=== PATIENT | female | born 1995 | race Caucasian/White ===

== ENCOUNTER 2018-09-05 23:40 | Emergency (ER) | payer OTHER ==
[2018-09-06] MEDS ORDERED: SODIUM CHLORIDE 1,000 ML IV STA (00:49)
[2018-09-06] MEDS ORDERED: METOCLOPRAMIDE HCL INJECTION 10 MG/2 ML VIAL IVPB ONE (00:49)
--- NOTE | 2018-09-06 00:49 | PDOC ---
History of Present Illness - General Chief Complaint: Migraine Headache Stated Complaint: PAIN Time Seen by Provider: 09/06/18 00:19 History Source: Patient - History of Present Illness Initial Comments: 09/06/18 01:02 23-year-old female with headache and left-sided facial pain for 2 days. Patient reports that she has a history of migraine. patient denies nausea, vomiting, dizziness, weakness. Patient reports she takes Tylenol but it hasn't been helping with the headache. Patient is also complaining of 2 week history of intermittent bilateral breast pain. denies redness, swelling, lump. 09/06/18 01:04 Past History - Past Medical History Allergies/Adverse Reactions: Allergies Allergy/AdvReac Type Severity Reaction Status Date / Time No Known Allergies Allergy Verified 09/06/18 01:14 Home Medications: Ambulatory Orders Acetaminophen [Tylenol .Regular Strength -] 650 mg PO Q3H PRN #0 tablet Benzocaine [Americaine 20% [place] -] 1 spray TP PRN PRN #0 bottle 02/20/16 Ferrous Sulfate [Feosol] 325 mg PO BID #60 ud 02/20/16 Ibuprofen [Motrin -] 200 mg PO Q4H PRN #0 tablet 02/20/16 Sennosides/Docusate Sodium [Pericolace -] 2 tablet PO HS PRN #60 tablet Witch [place]ida 50% (Tucks) [Tucks Pads -] 1 pad TP PRN PRN #0 pad 02/20/16 Docusate Sodium [Colace -] 100 mg PO BID #30 capsule 03/10/16 Asthma: No Cancer: No Cardiac Disorders: No Diabetes: No HTN: No Seizures: No Thyroid Disease: No - Immunization History Immunization Up to Date: Yes - Suicide/Smoking/Psychosocial Hx Smoking History: Never smoked Have you smoked in the past 12 months: No Hx Alcohol Use: No Drug/Substance Use Hx: No Substance Use Type: None Hx Substance Use Treatment: No Review of Systems - Review of Systems Able to Perform ROS?: Yes Is the patient limited Estonian proficient: No HEENTM: Yes: Other (breast pain) ABD/GI: No: Symptoms Reported, See HPI, Abdominal Distended, Abd. Pain w/ defecation, Blood Streaked Bowels, Constipated, Diarrhea, Difficulty Swallowing , Nausea, Poor Appetite, Poor Fluid Intake, Rectal Bleeding, Vomiting, Indigestion, Abdominal cramping, Tarry Stools, Other Neurological: Yes: Headache *Physical Exam - Vital Signs 09/06/18 04:37 Last Vital Signs Temp Pulse Resp BP Pulse Ox 98 F 70 18 126/76 99 09/05/18 23:40 09/05/18 23:40 09/05/18 23:40 09/05/18 23:40 09/05/18 23:40 - Physical Exam General Appearance: Yes: Appropriately Dressed HEENT: positive: Other (bilateral breast normal-appearing. No dimpling, drainage , lump noted. No nipple inversion. ) Respiratory/Chest: positive: Lungs Clear, Normal Breath Sounds Cardiovascular: positive: Regular Rhythm, Regular Rate Gastrointestinal/Abdominal: positive: Normal Bowel Sounds, Soft. 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-XII NML intact, Fully Oriented, Alert, Normal Mood/ Affect ED Treatment Course - LABORATORY CBC & Chemistry Diagram: 09/06/18 02:50 09/06/18 02:50 Progress Note - Progress Note Progress Note: migraine; breast pain P: IVF cbc cmp serum negative reglan benadryl toradol *DC/Admit/Observation/Transfer Diagnosis at time of Disposition: Breast pain in female Headache Qualifiers: Headache type: unspecified Headache chronicity pattern: acute headache Intractability: not intractable Qualified Code(s): R51 - Headache - Discharge Dispostion Disposition: HOME Condition at time of disposition: Fair - Referrals Referrals: Sawyer Ly DO [Staff Physician] - Call tomorrow - Patient Instructions Printed Discharge Instructions: DI for Migraine Additional Instructions: Drink plenty of fluids. Take ibuprofen every 6 hours as needed for pain May take Tylenol every 4-6 hours as needed for pain . Follow-up with the primary care provider as soon as possible. - Post Discharge Activity Forms/Work/School Notes: Back to Work
[2018-09-06 01:14] VITALS: BMI 25.7
[2018-09-06] MEDS ORDERED: METOCLOPRAMIDE HCL INJECTION 10 MG/2 ML VIAL ONE (02:27)
[2018-09-06 03:13] LABS: BASO % 0.3 % (0-2.0); EOS % 1.2 % (0-4.5); HEMATOCRIT 38.4 % (32.4-45.2); HEMOGLOBIN 13.1 GM/dL (10.7-15.3); LYMPH % 23.3 % (8-40); MCH 30.7 pg (25.7-33.7); MEAN CELL VOLUME 90.2 fl (80-96); MEAN PLT VOLUME 8.8 fl (7.5-11.1); MONO % 5.1 % (3.8-10.2); NEUT % 70.1 % (42.8-82.8); PLATELET COUNT 341 K/MM3 (134-434); RBC 4.25 M/mm3 (3.60-5.2); RDW 13.2 % (11.6-15.6); WHITE BLOOD COUNT 11.5 K/mm3 (4.0-10.0)
[2018-09-06 03:45] LABS: ALBUMIN 3.4 g/dl (3.4-5.0); ALK PHOS 91 U/L (45-117); ANION GAP 6 MMOL/L (8-16); BILIRUBIN,TOTAL 0.2 mg/dL (0.2-1); BLOOD UREA NITROGEN 13 mg/dL (7-18); CHLORIDE 105 mmol/L (98-107); CO2 27 mmol/L (21-32); CREATININE 0.6 mg/dL (0.55-1.3); GLUCOSE,RANDOM 103 mg/dL (74-106); SGOT/AST 13 U/L (15-37); SGPT/ALT 22 U/L (13-61); SODIUM 137 mmol/L (136-145); TOT PROT 7.4 g/dl (6.4-8.2)
[2018-09-06] MEDS ORDERED: KETOROLAC TROMETHAMINE 30 MG/1 ML VIAL IVPUSH ONE (03:52)
[2018-09-06] MEDS ORDERED: KETOROLAC TROMETHAMINE 30 MG/1 ML VIAL ONE (04:01)
[2018-09-06 04:52] VITALS: BP 95/55; PULSE 84; TEMP 98.2
== END 2018-09-06 05:04 | disposition home or self-care (01) ==
LOC: JER 23:40
PROC: 3E033GC Introduction of Other Therapeutic Substance into Peripheral Vein, Percutaneous Approach (ICD-10-PCS; principal; 2018-09-05)
DX: R51 Headache (principal); N64.4 Mastodynia
CPT/HCPCS: 36415; 80053; 84703; 85025; 96374; 96375; 99283-25; J7030

== ENCOUNTER 2022-01-07 13:31 | Emergency (ER) | payer OTHER ==
[2022-01-07 13:55] VITALS: BP 96/69; PULSE 88; RESP 17; TEMP 98.4; BMI 29.2
[2022-01-07 15:20] LABS: EPI CELLS >36 /uL (0-25.1); HYALINE CASTS 1 /uL (0-3.1); PH,URINE 6.5 (5.0-8.0); URINE APPEARANCE CLEAR; URINE BACTERIA 1809 /uL (0-1359); URINE BILIRUBIN NEGATIVE (NEGATIVE); URINE COLOR YELLOW; URINE GLUCOSE (UA) NEGATIVE (NEGATIVE); URINE KETONE NEGATIVE (NEGATIVE); URINE LEUK ESTERASE TRACE (NEGATIVE); URINE NITRITE NEGATIVE (NEGATIVE); URINE PROTEIN NEGATIVE (NEGATIVE); URINE RBC 2 /uL (0-23.9); URINE UROBILINOGEN 0.2 mg/dL (0.2-1.0); URINE WBC 42 /uL (0-25.8)
[2022-01-07 15:38] LABS: BASO % 0.4 % (0-2.0); EOS % 1.5 % (0-4.5); HEMATOCRIT 40.1 % (32.4-45.2); HEMOGLOBIN 13.5 GM/dL (10.7-15.3); LYMPH % 17.4 % (8-40); MCH 30.1 pg (25.7-33.7); MCHC 33.7 g/dl (32.0-36.0); MEAN CELL VOLUME 89.4 fl (80-96); MEAN PLT VOLUME 8.7 fl (7.5-11.1); MONO % 6.6 % (3.8-10.2); NEUT % 74.1 % (42.8-82.8); PLATELET COUNT 347 10^3/uL (134-434); RBC 4.49 M/mm3 (3.60-5.2); RDW 13.7 % (11.6-15.6); WHITE BLOOD COUNT 11.1 K/mm3 (4.0-10.0)
[2022-01-07 16:00] LABS: CALCIUM 8.9 mg/dL (8.5-10.1)
[2022-01-07 16:02] LABS: ALBUMIN 3.4 g/dl (3.4-5.0); BLOOD UREA NITROGEN 9.3 mg/dL (7-18)
[2022-01-07 16:04] LABS: CREATININE 0.5 mg/dL (0.55-1.3)
[2022-01-07 16:06] LABS: BILIRUBIN,TOTAL 0.5 mg/dL (0.2-1); TOT PROT 7.4 g/dl (6.4-8.2)
== END 2022-01-07 18:50 | disposition home or self-care (01) ==
LOC: JER 13:31 → JERFT 13:31
DX: O26.891 Other specified pregnancy related conditions, first trimester (principal); R10.9 Unspecified abdominal pain; Z3A.01 Less than 8 weeks gestation of pregnancy
CPT/HCPCS: 36415; 76801-TC; 76817-TC; 80053; 81003; 84702; 85025; 87086; 99284-25

== ENCOUNTER 2022-08-01 14:29 | Emergency (ER) | payer OTHER ==
[2022-08-01 14:50] VITALS: BP 116/78; PULSE 81; RESP 17; TEMP 97.1; BMI 29.1
[2022-08-01] MEDS ORDERED: LIDOCAINE 5% TOPICAL PATCH TP ONE (17:03)
[2022-08-01] MEDS ORDERED: KETOROLAC TROMETHAMINE 30 MG/1 ML VIAL IM ONE (17:03)
[2022-08-01] MEDS ORDERED: METHOCARBAMOL 500 MG TABLET PO ONE (17:04)
[2022-08-01] MEDS ORDERED: LIDOCAINE 5% TOPICAL PATCH ONE ×2 (17:41→18:00)
[2022-08-01] MEDS ORDERED: METHOCARBAMOL 500 MG TABLET ONE ×2 (17:41→18:00)
[2022-08-01] MEDS ORDERED: KETOROLAC TROMETHAMINE 30 MG/1 ML VIAL ONE ×2 (17:41→18:00)
[2022-08-01] MEDS ORDERED: LIDOCAINE PATCH REMOVAL MC SCH (22:00)
== END 2022-08-01 18:35 | disposition home or self-care (01) ==
LOC: JERFT 14:29 → JER 14:29
PROC: 3E0233Z Introduction of Anti-inflammatory into Muscle, Percutaneous Approach (ICD-10-PCS; principal; 2022-08-01)
DX: S16.1XXA Strain of muscle, fascia and tendon at neck level, initial encounter (principal); V49.50XA Passenger injured in collision with unspecified motor vehicles in traffic accident, initial encounter
CPT/HCPCS: 72050-TC-FY; 93005; 93010; 99284-25

== ENCOUNTER 2023-02-07 22:28 | Day surgery (SDC) | payer OTHER ==
[2023-02-07 23:07] LABS: EPI CELLS 25 /uL (0-25.1); HYALINE CASTS 3 /uL (0-3.1); PH,URINE 5.5 (5.0-8.0); URINE APPEARANCE TURBID; URINE BACTERIA 1206 /uL (0-1359); URINE BILIRUBIN NEGATIVE (NEGATIVE); URINE COLOR YELLOW; URINE GLUCOSE (UA) NEGATIVE (NEGATIVE); URINE KETONE NEGATIVE (NEGATIVE); URINE LEUK ESTERASE 2+ (NEGATIVE); URINE NITRITE NEGATIVE (NEGATIVE); URINE PROTEIN NEGATIVE (NEGATIVE); URINE RBC 23 /uL (0-23.9); URINE UROBILINOGEN 0.2 mg/dL (0.2-1.0); URINE WBC 196 /uL (0-25.8)
[2023-02-07 23:09] LABS: HCG,QUALITATIVE URINE Positive
[2023-02-07] MEDS ORDERED: MAG HYDROX/AL HYDROX/SIMETH 30 ML UNIT-DOSE CUP PO ONE (23:10)
[2023-02-07] MEDS ORDERED: SODIUM CHLORIDE 0.9% 500 ML INFUS.BAG IV ONE (23:10)
[2023-02-07] MEDS ORDERED: FAMOTIDINE 20 MG/50 ML IVPB 20 MG/50 ML MG IVPB ONE ×2 (23:10→23:33)
[2023-02-07] MEDS ORDERED: ACETAMINOPHEN 1000 MG/100 ML BAG IVPB ONE (23:16)
[2023-02-07] MEDS ORDERED: MAG HYDROX/AL HYDROX/SIMETH 30 ML UNIT-DOSE CUP ONE (23:25)
[2023-02-07] MEDS ORDERED: ACETAMINOPHEN INJECTION 100 ML IVPB ONE (23:25)
[2023-02-07 23:37] LABS: BASO % 0.4 % (0-2.0); EOS % 2.2 % (0-4.5); HEMATOCRIT 37.8 % (32.4-45.2); HEMOGLOBIN 12.9 GM/dL (10.7-15.3); LYMPH % 11.8 % (8-40); MCH 29.4 pg (25.7-33.7); MCHC 34.1 g/dl (32.0-36.0); MEAN PLT VOLUME 7.6 fl (7.5-11.1); MONO % 6.6 % (3.8-10.2); PLATELET COUNT 387 10^3/uL (134-434); RDW 13.2 % (11.6-15.6); WHITE BLOOD COUNT 19.4 K/mm3 (4.0-10.0)
[2023-02-08 00:04] LABS: POTASSIUM 4.3 mmol/L (3.5-5.1)
[2023-02-08 00:07] LABS: ALBUMIN 3.3 g/dl (3.4-5.0); BLOOD UREA NITROGEN 6.8 mg/dL (7-18); CALCIUM 8.5 mg/dL (8.5-10.1)
[2023-02-08 00:10] LABS: CREATININE 0.6 mg/dL (0.55-1.3)
[2023-02-08 00:12] LABS: BILIRUBIN,TOTAL 0.4 mg/dL (0.2-1); TOT PROT 7.5 g/dl (6.4-8.2)
[2023-02-08] MEDS ORDERED: diphenhydrAMINE HCL 50 MG CAPSULE PO ONE (02:16)
[2023-02-08] MEDS ORDERED: CEFTRIAXONE 1 GM in DEXTROSE 5%-WATER - 100 ML IVPB ONE (02:16)
[2023-02-08] MEDS ORDERED: diphenhydrAMINE HCL 25 MG CAPSULE (FP) PO ONE (02:18)
[2023-02-08] MEDS ORDERED: CEFTRIAXONE 1 GM/50 ML BAG ONE (02:25)
[2023-02-08] MEDS ORDERED: ONDANSETRON 4 MG/2 ML VIAL IVPUSH PRN ×3 (03:44→20:26)
[2023-02-08] MEDS ORDERED: ACETAMINOPHEN 1000 MG/100 ML BAG IVPB PRN ×2 (08:17→20:26)
[2023-02-08] MEDS ORDERED: ACETAMINOPHEN INJECTION 100 ML IVPB ONE ×2 (08:30→19:13)
[2023-02-08] MEDS ORDERED: SODIUM CHLORIDE 1,000 ML IV SCH (08:30)
[2023-02-08] MEDS ORDERED: ENOXAPARIN NA (PORCINE) 40 MG/0.4 ML DISP.SYRIN SQ SCH (10:00)
[2023-02-08 16:56] VITALS: BMI 13.3
[2023-02-08] MEDS ORDERED: PROMETHAZINE HCL 25 MG/1 ML VIAL IVPB PRN (18:50)
[2023-02-08] MEDS ORDERED: PROPOFOL 20 ML ONE (18:55)
[2023-02-08] MEDS ORDERED: ROCURONIUM BROMIDE 50 MG/5 ML SYRINGE ONE (18:56)
[2023-02-08] MEDS ORDERED: ETOMIDATE 20 MG/10 ML VIAL IVPUSH ONE (18:59)
[2023-02-08] MEDS ORDERED: LACTATED RINGERS SOLUTION 1,000 ML IV SCH (19:00)
[2023-02-08] MEDS ORDERED: cefOXitin SODIUM 2 GM VIAL (RESTRICTED TO ID) IVPB ONE (19:04)
[2023-02-08] MEDS ORDERED: SODIUM CHLORIDE 0.9% P/F 10 ML VIAL IJ ONE (19:05)
[2023-02-08] MEDS ORDERED: DEXAMETHASONE SOD PHOSPHATE 4 MG/1 ML VIAL ONE (19:07)
[2023-02-08] MEDS ORDERED: ONDANSETRON 4 MG/2 ML VIAL ONE (19:07)
[2023-02-08] MEDS ORDERED: BUPIVACAINE HCL/PF 0.5% (5 MG/ML) 30 ML VIAL IJ ONE (19:41)
[2023-02-08] MEDS ORDERED: SUGAMMADEX SODIUM 200 MG/2 ML VIAL ONE (19:48)
[2023-02-08] MEDS ORDERED: KETOROLAC TROMETHAMINE 30 MG/1 ML VIAL ONE (19:48)
[2023-02-08] MEDS ORDERED: oxyCODONE HCL 5 MG TABLET PO PRN (20:26)
[2023-02-08 21:57] VITALS: RESP 18
[2023-02-08] MEDS: LACTATED RINGERS SOLUTION 1,000 ML IV SCH (21:59)
[2023-02-08] MEDS ORDERED: CEFTRIAXONE 1 GM in DEXTROSE 5%-WATER - 50 ML IVPB SCH (22:00)
[2023-02-09] MEDS: ACETAMINOPHEN 1000 MG/100 ML BAG IVPB PRN ×2 (01:53→13:04)
[2023-02-09] MEDS: LACTATED RINGERS SOLUTION 1,000 ML IV SCH (06:05)
[2023-02-09 13:15] LABS: HEMATOCRIT 35.3 % (32.4-45.2); MCH 29.4 pg (25.7-33.7); MCHC 33.9 g/dl (32.0-36.0); MEAN CELL VOLUME 86.6 fl (80-96); MEAN PLT VOLUME 7.7 fl (7.5-11.1); PLATELET COUNT 393 10^3/uL (134-434); RBC 4.08 M/mm3 (3.60-5.2); RDW 13.3 % (11.6-15.6)
[2023-02-09 14:09] LABS: POTASSIUM 4.3 mmol/L (3.5-5.1)
[2023-02-09 14:11] LABS: CALCIUM 8.7 mg/dL (8.5-10.1)
[2023-02-09 14:13] LABS: BLOOD UREA NITROGEN 9.9 mg/dL (7-18); MAGNESIUM 2.3 mg/dL (1.8-2.4)
[2023-02-09 14:16] LABS: BILIRUBIN,TOTAL 0.4 mg/dL (0.2-1); CREATININE 0.7 mg/dL (0.55-1.3); TOT PROT 6.9 g/dl (6.4-8.2)
[2023-02-09 14:20] LABS: PHOSPHOROUS 2.2 mg/dL (2.5-4.9)
[2023-02-10] MEDS: LACTATED RINGERS SOLUTION 1,000 ML IV SCH (05:43)
[2023-02-10] MEDS ORDERED: ACETAMINOPHEN 1000 MG/100 ML BAG IVPB PRN ×3 (08:02→10:12)
[2023-02-10 10:19] LABS: BASO % 0.5 % (0-2.0); EOS % 0.8 % (0-4.5); HEMATOCRIT 35.2 % (32.4-45.2); HEMOGLOBIN 11.9 GM/dL (10.7-15.3); LYMPH % 24.7 % (8-40); MCH 29.6 pg (25.7-33.7); MCHC 33.9 g/dl (32.0-36.0); MEAN CELL VOLUME 87.3 fl (80-96); MEAN PLT VOLUME 7.8 fl (7.5-11.1); MONO % 5.6 % (3.8-10.2); NEUT % 68.4 % (42.8-82.8); PLATELET COUNT 387 10^3/uL (134-434); RBC 4.03 M/mm3 (3.60-5.2); RDW 13.4 % (11.6-15.6); WHITE BLOOD COUNT 11.6 K/mm3 (4.0-10.0)
[2023-02-10 10:51] LABS: POTASSIUM 3.7 mmol/L (3.5-5.1)
[2023-02-10 10:53] LABS: CALCIUM 8.5 mg/dL (8.5-10.1); MAGNESIUM 2.2 mg/dL (1.8-2.4)
[2023-02-10 10:55] LABS: BLOOD UREA NITROGEN 6.7 mg/dL (7-18)
[2023-02-10 10:57] LABS: CREATININE 0.6 mg/dL (0.55-1.3); PHOSPHOROUS 2.9 mg/dL (2.5-4.9)
[2023-02-10 13:29] VITALS: BP 107/63; PULSE 86; TEMP 98.9
== END 2023-02-10 14:54 | disposition home or self-care (01) ==
LOC: JER 22:28 → JERBED 02-08 02:42 → UNDOADMOB 02-08 02:42 → INTOOBSV 02-08 03:40 → OBSVTOIN 02-08 03:40 → JERBED 02-08 15:38 → J5S 02-08 15:38 → SUATTDRO 02-09 08:40 → JASUSAT 02-09 08:40 → J5S 02-09 08:51 → JASUSAT 02-10 14:54
PROVIDERS: ATTEND Internal Medicine
PROC: 0DTJ4ZZ Resection of Appendix, Percutaneous Endoscopic Approach (ICD-10-PCS; principal; 2023-02-09)
DX: K35.80 Unspecified acute appendicitis (principal)
CPT/HCPCS: 36415; 74181-TC; 76705-TC; 76817-TC; 80048; 80053; 81003; 83690; 83735; 84100; 84702; 84703; 85025; 85027; 87086; 88304-TC; 93005; 93010; 94760; 99285-25; G0378

== ENCOUNTER 2023-03-05 08:03 | Emergency (ER) | payer OTHER ==
[2023-03-05 08:21] VITALS: BMI 33.2
[2023-03-05 10:23] LABS: BASO % 0.4 % (0-2.0); HEMATOCRIT 39.1 % (32.4-45.2); LYMPH % 13.8 % (8-40); MCH 29.2 pg (25.7-33.7); MCHC 33.3 g/dl (32.0-36.0); MEAN CELL VOLUME 87.6 fl (80-96); MEAN PLT VOLUME 7.7 fl (7.5-11.1); NEUT % 77.8 % (42.8-82.8); PLATELET COUNT 361 10^3/uL (134-434); RBC 4.47 M/mm3 (3.60-5.2); RDW 13.2 % (11.6-15.6); WHITE BLOOD COUNT 10.6 K/mm3 (4.0-10.0)
[2023-03-05 10:48] LABS: POTASSIUM 4.4 mmol/L (3.5-5.1)
[2023-03-05 10:50] LABS: ALBUMIN 3.2 g/dl (3.4-5.0); BLOOD UREA NITROGEN 7.1 mg/dL (7-18); CALCIUM 8.9 mg/dL (8.5-10.1)
[2023-03-05 10:53] LABS: CREATININE 0.5 mg/dL (0.55-1.3)
[2023-03-05 10:55] LABS: BILIRUBIN,TOTAL 0.4 mg/dL (0.2-1); TOT PROT 7.1 g/dl (6.4-8.2)
[2023-03-05 12:41] LABS: EPI CELLS 28 /uL (0-25.1); HYALINE CASTS 0 /uL (0-3.1); PH,URINE 6.5 (5.0-8.0); URINE APPEARANCE CLEAR; URINE BACTERIA 1142 /uL (0-1359); URINE BILIRUBIN NEGATIVE (NEGATIVE); URINE COLOR YELLOW; URINE GLUCOSE (UA) NEGATIVE (NEGATIVE); URINE KETONE 2+ (NEGATIVE); URINE LEUK ESTERASE TRACE (NEGATIVE); URINE NITRITE NEGATIVE (NEGATIVE); URINE PROTEIN NEGATIVE (NEGATIVE); URINE RBC 10 /uL (0-23.9); URINE WBC 17 /uL (0-25.8)
[2023-03-05 13:46] VITALS: BP 114/75; PULSE 96; RESP 18; TEMP 98.4
== END 2023-03-05 14:18 | disposition home or self-care (01) ==
LOC: JER 08:03
DX: O26.891 Other specified pregnancy related conditions, first trimester (principal); R10.2 Pelvic and perineal pain; R53.83 Other fatigue; M54.50 Low back pain, unspecified; Z3A.01 Less than 8 weeks gestation of pregnancy
CPT/HCPCS: 36415; 76817-TC; 80053; 81003; 84702; 84703; 85025; 87086; 99284-25

== ENCOUNTER 2023-04-11 17:14 | Emergency (ER) | payer OTHER ==
[2023-04-11 17:23] VITALS: BP 125/81; PULSE 101; RESP 18; TEMP 97.8; BMI 28.3
[2023-04-11] MEDS ORDERED: ACETAMINOPHEN 500 MG TABLET (FP) PO ONE (18:23)
[2023-04-11] MEDS ORDERED: ACETAMINOPHEN 325 MG TABLET (FP) ONE (18:40)
[2023-04-11 18:55] LABS: BASO % 0.4 % (0-2.0); EOS % 1.2 % (0-4.5); HEMATOCRIT 37.6 % (32.4-45.2); HEMOGLOBIN 12.5 GM/dL (10.7-15.3); LYMPH % 14.8 % (8-40); MCH 29.2 pg (25.7-33.7); MCHC 33.4 g/dl (32.0-36.0); MEAN CELL VOLUME 87.4 fl (80-96); MEAN PLT VOLUME 7.6 fl (7.5-11.1); MONO % 5.7 % (3.8-10.2); NEUT % 77.9 % (42.8-82.8); PLATELET COUNT 377 10^3/uL (134-434); RDW 13.8 % (11.6-15.6); WHITE BLOOD COUNT 12.1 K/mm3 (4.0-10.0)
[2023-04-11 18:58] LABS: EPI CELLS >36 /uL (0-25.1); HYALINE CASTS 2 /uL (0-3.1); URINE APPEARANCE Error; URINE BACTERIA 1132 /uL (0-1359); URINE BILIRUBIN NEGATIVE (NEGATIVE); URINE COLOR DK YELLOW; URINE GLUCOSE (UA) NEGATIVE (NEGATIVE); URINE KETONE TRACE (NEGATIVE); URINE LEUK ESTERASE 1+ (NEGATIVE); URINE NITRITE NEGATIVE (NEGATIVE); URINE PROTEIN NEGATIVE (NEGATIVE); URINE WBC 49 /uL (0-25.8)
[2023-04-11 19:22] LABS: POTASSIUM 4.1 mmol/L (3.5-5.1)
[2023-04-11 19:24] LABS: CALCIUM 8.6 mg/dL (8.5-10.1)
[2023-04-11 19:25] LABS: ALBUMIN 2.9 g/dl (3.4-5.0); BLOOD UREA NITROGEN 5.6 mg/dL (7-18)
[2023-04-11 19:28] LABS: CREATININE 0.5 mg/dL (0.55-1.3)
[2023-04-11 19:30] LABS: BILIRUBIN,TOTAL 0.1 mg/dL (0.2-1); TOT PROT 7.2 g/dl (6.4-8.2)
[2023-04-11 20:05] LABS: URINE RBC 25.5 /uL (0-23.9)
[2023-04-11] MEDS ORDERED: CEPHALEXIN MONOHYDRATE 500 MG CAPSULE (UD) PO ONE (20:54)
[2023-04-11] MEDS ORDERED: CEPHALEXIN MONOHYDRATE 500 MG CAPSULE (UD) ONE (21:02)
== END 2023-04-11 21:11 | disposition home or self-care (01) ==
LOC: JER 17:14
DX: O20.0 Threatened abortion (principal); Z3A.13 13 weeks gestation of pregnancy
CPT/HCPCS: 36415; 76817-TC; 80053; 81003; 84702; 85025; 86850; 86900; 86901; 87086; 99284-25